=== PATIENT | male | born 1980 | race Caucasian/White ===

== ENCOUNTER 2018-04-14 15:11 | Emergency (ER) | payer BC ==
[2018-04-14] MEDS ORDERED: Proparacaine 0.5% Opth 15 ML BOT ONE (15:26)
== END 2018-04-14 15:47 | disposition home or self-care (01) ==
LOC: MADERS 15:11
DX: H10.11 Acute atopic conjunctivitis, right eye (principal); F17.210 Nicotine dependence, cigarettes, uncomplicated
CPT/HCPCS: 99283

== ENCOUNTER 2022-04-22 21:47 | Emergency (ER) | payer BC ==
[2022-04-22] MEDS ORDERED: Ketorolac Tromethamine 30 MG/ML VIAL ONE (23:09)
== END 2022-04-22 23:23 | disposition home or self-care (01) ==
LOC: MADERS 21:47
DX: S97.81XA Crushing injury of right foot, initial encounter (principal); S90.31XA Contusion of right foot, initial encounter; S90.01XA Contusion of right ankle, initial encounter; F17.210 Nicotine dependence, cigarettes, uncomplicated; W23.0XXA Caught, crushed, jammed, or pinched between moving objects, initial encounter
CPT/HCPCS: J1885